=== PATIENT | male | born 1960 | race Hispanic/Latino ===

== ENCOUNTER 2020-04-12 15:16 | Emergency (ER) | payer OTHER ==
[~2020-04-12] VITALS: Ht 182.9 cm; Wt 92.7 kg
[2020-04-12] MEDS ORDERED: PREDNISONE20 MG PO (17:05)
[2020-04-12] MEDS ORDERED: VENTOLIN HFA18 GM INH (17:05)
--- NOTE | 2020-04-13 16:51 | EKG ---
[facility] [address] [place] [address] Signed Normal sinus rhythm Prolonged QT Abnormal ECG No previous ECGs available Confirmed by HERNANDEZ ALBRIGHT MD ([id number] on 04/13/2020 4:51:02 PM Electronically Signed By: HERNANDEZ ALBRIGHT MD 04/13/20 165 PATIENT NAME: NITZABERNARDA Electrocardiogram DATE OF : 64 PHYSICIAN: HERNANDEZ ALBRIGHT MD REPORT #: [id number] REPORT IS CONFIDENTIAL AND NOT TO BE RELEASED WITHOUT AUTHORIZATION
== END 2020-04-12 17:20 | disposition home or self-care (01) ==
LOC: ED 15:16
DX: J45.909 Unspecified asthma, uncomplicated (principal); Z20.828 Contact with and (suspected) exposure to other viral communicable diseases; Z87.891 Personal history of nicotine dependence
CPT/HCPCS: 71045; 80053; 84484; 85025; 93005; 93010; 99285-25; C9803; U0003

== ENCOUNTER 2020-04-30 15:24 | Emergency (ER) | payer OTHER ==
[~2020-04-30] VITALS: Ht 182.9 cm; Wt 92.5 kg
[~2020-04-30 15:24] MED LIST: PREDNISONE20 MG PO; VENTOLIN HFA18 GM INH
--- OUTSIDE RECORDS SUMMARY | 2020-04-30 15:28 | XMS ---
PreManage Notification: BERNARDA GODDARD [employer] Events No recent Security Events currently on file CRITERIA MET - [facility] [place] - 2 Visits in 30 Days CARE PROVIDERS There are no care providers on record at this time. Tita has no Care Guidelines for this patient. [place] [facility]12 MO.) [facility] NOTE: Visits indicate total known visits. ED/C VISIT TRACKING (12 MO.) [facility] COMPLAINT: - SOB 04/12/2020 15:17 [facility] [place] TYPE: Emergency COMPLAINT: - SOB DIAGNOSES: - Personal history of nicotine dependence - Unspecified asthma, uncomplicated - Contact with and (suspected) exposure to other viral communicable diseases - Shortness of breath INPATIENT VISIT TRACKING (12 MO.) No inpatient visits to display in this time frame [email or web address]
[2020-04-30] MEDS ORDERED: AZITHROMYCIN250 MG PO (16:44)
[2020-04-30] MEDS ORDERED: BENZONATATE100 MG PO (16:44)
[2020-04-30] MEDS ORDERED: VENTOLIN HFA18 GM INH (17:47)
[2020-04-30] MEDS ORDERED: QVAR REDIHALE10.6 GM INH (17:47)
[2020-04-30] MEDS ORDERED: IPRAT-ALBUT 0.5-3 ML INH (17:48)
== END 2020-04-30 18:01 | disposition home or self-care (01) ==
LOC: ED 15:24
DX: J45.901 Unspecified asthma with (acute) exacerbation (principal); Z87.891 Personal history of nicotine dependence; J18.9 Pneumonia, unspecified organism; Z79.899 Other long term (current) drug therapy; Z79.52 Long term (current) use of systemic steroids
CPT/HCPCS: 99284